=== PATIENT | female | born 1985 | race American Indian/Alaskan Native ===

== ENCOUNTER 2018-09-12 14:12 | Emergency (ER) | payer OTHER ==
[2018-09-12 14:29] VITALS: BP 158/85
[2018-09-12] MEDS ORDERED: NACL 0.9% 1000 ML 1,000 ML IV ONE (14:29)
[2018-09-12 15:03] LABS: Basophils % (Auto) 0.5 % (0.0-1.8); Eosinophils # (Auto) 0.1 K/mm3 (0.0-0.4); Eosinophils % (Auto) 1.5 % (0.0-4.3); Hematocrit 36.9 % (30.3-42.9); Hemoglobin 12.1 gm/dl (10.1-14.3); Lymphocytes # (Auto) 2.3 K/mm3 (1.2-5.4); Mean Corpuscular HGB Conc 33 % (30-34); Mean Corpuscular Volume 86 fl (79-97); Monocytes # (Auto) 0.4 K/mm3 (0.0-0.8); Monocytes % (Auto) 5.1 % (0.0-7.3); Platelet Count 284 K/mm3 (140-440); Red Blood Count 4.29 M/mm3 (3.65-5.03); Red Cell Distribution Width 14.4 % (13.2-15.2)
[2018-09-12 15:29] LABS: Albumin 4.1 g/dL (3.9-5); BUN/Creatinine Ratio 6; Blood Urea Nitrogen 5 mg/dL (7-17); Hemolysis Index 5
[2018-09-12 15:40] LABS: Alanine Aminotransferase < 5 units/L (7-56)
[2018-09-12] MEDS ORDERED: K-DUR PO ONE (18:15)
--- NOTE | 2018-09-12 18:34 | Emergency Department Report ---
<ROS CARDENAS A - Last Filed: 09/12/18 19:05> ED Female HPI - General Chief complaint: Vaginal Bleeding Stated complaint: VAG BLEED Time Seen by Provider: 09/12/18 15:42 Source: patient Mode of arrival: Ambulatory Limitations: No Limitations - History of Present Illness Initial comments: Patient is a 33-year-old -[place] female who just medication that she obtained on Area and she took the pill on 08/13/2018. She is here complaining of vaginal bleeding since that time. She does not know the name of pill. She 3P2 a 1. First day of last menstrual period 06/22/2018. This makes patient about 6 weeks at the time of . She has had no [facility] care. She is ambulatory. She has no fever, is not tachycardic and is not hypotensive. Pt states she feels like there is something in her. MD Complaint: vaginal bleeding -: Gradual Quality: cramping, other (FEELS LIKE SOMETHING IS IN HER) Consistency: intermittent Improves with: none Worsens with: none - Related Data Allergies Allergy/AdvReac Type Severity Reaction Status Date / Time No Known Allergies Allergy Unverified 09/12/18 14:29 ED Review of Systems Comment: All other systems reviewed and negative Constitutional: denies: chills Eyes: denies: eye pain ENT: denies: throat pain Respiratory: denies: cough Cardiovascular: denies: palpitations Endocrine: denies: flushing Gastrointestinal: as per HPI, abdominal pain. denies: nausea, vomiting Genitourinary: as per HPI, other (VAG BLEEDING SINCE SHE TOOK AN UNKNOWN PILL ON 08-13). denies: urgency, dysuria Musculoskeletal: as per HPI, back pain Skin: denies: rash, lesions Neurological: denies: headache Psychiatric: denies: anxiety Hematological/Lymphatic: denies: easy bleeding ED Past Medical Hx - Past Medical History Hx Diabetes: Yes - Surgical History Past Surgical History?: Yes Additional Surgical History: C section - Family History Family history: no significant - Social History Smoking Status: Current Some Day Smoker ED Physical Exam - General Limitations: No Limitations General appearance: alert - Head Head exam: Present: atraumatic - Eye Eye exam: Present: normal appearance Pupils: Present: normal accommodation - ENT ENT exam: Present: normal exam - Neck Neck exam: Present: normal inspection - Respiratory Respiratory exam: Present: normal lung sounds bilaterally - Cardiovascular Cardiovascular Exam: Present: regular rate - GI/Abdominal GI/Abdominal exam: Present: soft, normal bowel sounds - Rectal Rectal exam: Present: deferred - Extremities Exam Extremities exam: Present: normal inspection, full ROM - Back Exam Back exam: Present: normal inspection, full ROM - Neurological Exam Neurological exam: Present: alert, oriented X3 - Psychiatric Psychiatric exam: Present: normal affect, normal mood - Skin Skin exam: Present: warm, dry, intact ED Medical Decision Making - Lab Data Result diagrams: 09/12/18 14:38 09/12/18 14:38 - Radiology Data Radiology results: report reviewed - Medical Decision Making VSS. NO FEVER. NO TACHY. NO HYPOTENSION LMP 06-22 TOOK UNKNOWN AB PILL ON 08-13 AND HAS BEEN BLEEDING SINCE THEN. SHE HAS HAD NO OBGYN CARE A1 PLAN 1. BASIC LABS NOTED- NO SYMPTOMATIC ANEMIA AND NO SEPSIS 2. BETAHCG QUANT PENDING SO THERE IS A MEANS TO TRACK HER OVER DAYS TO COME. I SUSPECT THIS WILL BE POSITIVE AT THIS POINT IN TIME. 3. AB0 PENDING GIVEN AND UNKNOWN BLOOD TYPE- RHOGAM IF INDICATED 4. UA PENDING TO RO UTI 5. US TO RO RETAINED PRODUCT FOR PT "FEELS LIKE THERE IS SOMETHING IN THERE." DISCUSSED WITH US DEPT AND THEY WILL CALL IF THEY SEE ANYTHING ON TRANSVAG THAT WOULD INDICATE A NEED TO DO A TRANSABD DISCUSSED DC FOLLOW UP WITH OBGYN WITH PT. - Differential Diagnosis RO RETAINED PRODUCT ED Disposition Clinical Impression: Hypokalemia, Complications following and ectopic and molar pregnancies Disposition: Z-07 ELOPED Is pt being admited?: No Does the pt Need Aspirin: No Condition: Stable Instructions: Spontaneous Miscarriage (ED) Additional Instructions: SAFE SEX MOTRIN OR TYLENOL FOR PAIN FOLLOW UP WITH OBGYN WE DISCUSSED TO ADDRESS YOUR BLEEDING Referrals: PRIMARY CAREMD [Primary Care Provider] - 3-5 Days RACHAEL CHAMPION MD [Staff Physician] - 3-5 Days Time of Disposition: 18:51 <TYE POLANCO - Last Filed: 09/12/18 20:59> ED Review of Systems ROS: Stated complaint: VAG BLEED Other details as noted in HPI ED Course Vital Signs 01/14/19 14:26 Temperature 98.4 F Pulse Rate 72 Respiratory 16 Rate Blood Pressure 158/85 O2 Sat by Pulse 100 Oximetry - Reevaluation(s) Reevaluation #1: 09/12/18 20:55 mammography technologist has been trying to locate patient for the last 2 hours. Provider also had nursing staff to try and locate patient. This provider call patient's phone number and patient reports that she has gone home. I discussed the patient the importance of having her ultrasound done. Patient reports that she'll follow up in [facility] clinic. ED Medical Decision Making - Lab Data Result diagrams: 09/12/18 14:38 09/12/18 14:38 Critical care attestation.: If time is entered above; I have spent that time in minutes in the direct care of this critically ill patient, excluding procedure time. ED Disposition Is pt being admited?: No Does the pt Need Aspirin: No
[2018-09-12 19:39] LABS: Bilirubin,Urine NEG (Negative); Blood,Urine MOD (Negative); Color,Urine Yellow (Yellow); Mucus,Urine FEW /HPF; Protein,Urine <15 mg/dL mg/dL (Negative); RBC,Urine < 1.0 /HPF (0.0-6.0); Urobilinogen,Urine < 2.0 mg/dL (<2.0)
[2018-09-12 19:44] LABS: HCG Qualitative,Urine Negative (Negative)
== END 2018-09-12 21:00 | disposition left against medical advice (07) ==
LOC: ED 14:12
DX: O08.89 Other complications following an ectopic and molar pregnancy (principal); O24.911 Unspecified diabetes mellitus in pregnancy, first trimester; O99.331 Smoking (tobacco) complicating pregnancy, first trimester; E87.6 Hypokalemia; Z3A.01 Less than 8 weeks gestation of pregnancy
CPT/HCPCS: 36415; 80053; 81001; 81025; 84702; 85025; 86900; 86901; 99283